=== PATIENT | male | born 1995 | race Caucasian/White ===

== ENCOUNTER → 2021-08-30 09:55 | Outpatient (BNVA) | payer OTHER, MEDICAID, SELFPAY | PROVIDERS: PCP Family Medicine; Referring Provider Family Medicine; Visit Provider Orthopaedic Surgery | DX: M25.311 Other instability, right shoulder (principal); M25.312 Other instability, left shoulder | CPT/HCPCS: 73030 ==

== ENCOUNTER → 2021-10-10 16:08 | Outpatient (BNVA) | payer MEDICAID, SELFPAY | PROVIDERS: PCP Family Medicine; Visit Provider Family Medicine | DX: G44.001 Cluster headache syndrome, unspecified, intractable (principal); R10.32 Left lower quadrant pain | CPT/HCPCS: 81000; 87086 ==

== ENCOUNTER 2021-10-13 09:43 | Outpatient (CLI) | payer MEDICAID, SELFPAY ==
--- NOTE | 2021-10-13 10:04 | XRR_ITS ---
PROCEDURE INFORMATION: Exam: XR Abdomen Exam date and time: 10/13/2021 10:10 AM Age: 25 years old Clinical indication: Abdominal pain; Localized; Left lower quadrant (llq); Patient HX: --llq abdomen pain for 5 days; Additional info: Llq pain TECHNIQUE: Imaging protocol: XR of the abdomen. Views: Frontal supine view of the abdomen. 1 View. COMPARISON: No relevant prior studies available. FINDINGS: Gastrointestinal tract: Nonobstructive bowel gas pattern. There is a moderate amount of stool throughout the colon and rectum, suggestive of constipation. Bones/joints: Unremarkable. XR/XR KUB [id number] IMPRESSION: 1. Nonobstructive bowel gas pattern. 2. Imaging findings suggestive of constipation.
== END 2021-10-13 09:44 | disposition home or self-care (01) ==
LOC: RAD 09:47
PROVIDERS: PCP Family Medicine; Visit Provider Family Medicine
DX: R10.32 Left lower quadrant pain (principal)
CPT/HCPCS: 74018

== ENCOUNTER 2021-10-14 22:17 | Inpatient (IN) | payer MEDICAID, SELFPAY ==
[2021-10-14 22:24] VITALS: BP 166/104; PULSE 124; RESP 20; TEMP 36.7; O2SAT 97; BMI 34.4
--- NOTE | 2021-10-14 22:25 | ED.C_ITS ---
HPI - Psych General: Chief Complaint: Psychiatric Symptoms Stated Complaint: HI Time Seen by Provider: 10/14/21 22:20 Source: patient Mode of arrival: ambulatory Limitations: no limitations History of Present Illness: 25-year-old male who states that he has been getting extremely angry and agitated with his family members. He states that he has been having thoughts of homicide along with depression and thoughts of hurting himself. Patient here is very tearful and is concerned that he is going to hurt himself or others and wants to get help. He has no specific plan. He denies any worsening improving factors he is not on any meds currently. Associated symptoms: Reports depression and homicidal ideation Review of Systems Const: Denies: fever(s), chills, body aches or change in appetite Eyes: Denies: blurry vision or eye discomfort ENMT: Denies: throat pain or dental pain Card: Denies: chest pain Resp: Denies: dyspnea GI: Denies: abdominal pain, nausea, vomiting or diarrhea : Denies: dysuria Musc: Denies: neck pain or back pain Skin/Breast: Denies: rash Neuro: Denies: headache(s) Psych: Reports: depression and homicidal ideation Juan Jose/Lymph: Denies: easy bruising All/Imm: Denies: urticaria PFSH ED PFSH: Medical History Cluster headaches Recurrent dislocation of shoulder region Bilateral Family History Father Cancer Hyperlipidemia Hypertension Grandmother Diabetes Denies family history of CAD (coronary artery disease) Clotting disorder Dementia Psychiatric illness Chronic kidney disease (CKD) Suicide Anesthesia complication Bleeding disorder Family history of premature coronary artery disease Lung disease Stroke Social History Smoking and tobacco status: current every day smoker e-cigarettes E-Cigarette Details: vaporizer device E-cig/vape details: 1 pod per 2 days Quit status (tobacco): not considering quitting Alcohol intake: former Adopted: No Caregiver/support person: Yes Lives independently: Yes Household members: spouse and children Marital status: Number of children: 3 service: Yes Current gender identity: Male Physical Exam Const: COMMON NORMALS: no acute distress, patient oriented x3 and healthy appearing HENMT: COMMON NORMALS: normocephalic and atraumatic HEAD & SCALP: normocep halic and atraumatic Eye: COMMON NORMALS: Equal, round and reactive pupils present and EOMs intact bilaterally PUPIL: Yes Equal, round and reactive pupils present Neck/C-Spine: COMMON NORMALS: full ROM and supple Chest: COMMONS NORMALS: normal inspection of the chest and normal palpation of entire chest wall Resp: COMMON NORMALS: normal respiratory effort, No retractions, No use of accessory muscles and clear to auscultation bilaterally AUSCULTATION: clear to auscultation bilaterally Cardio: COMMON NORMALS: regular rate, regular rhythm and No murmurs present (Cardio) RATE: regular rate RHYTHM: regular rhythm GI: COMMON NORMALS: Normal to inspection, nondistended, normoactive bowel sounds present, Soft to palpation, non-tender and no masses PALPATION: Yes Soft to palpation Extremity: COMMON NORMALS: normal to inspection and full ROM Neuro: COMMON NORMALS: patient oriented x3, moves all extremities and no focal motor deficits Psych: COMMON NORMALS: mental status grossly normal, Normal thought process present and cooperative MOOD & AFFECT: Yes depressed mood and Yes tearful THOUGHT PROCESS: Normal thought process present THOUGHT CONTENT: Yes Homicidality present Skin: COMMON NORMALS: no rashes or lesions noted and no wounds GENERAL SKIN EXAM: no rashes or lesions noted Course Vital Signs: Vital signs: Vital Signs Temperature 98.1 F 10/14/21 22:24 Pulse Rate 124 H 10/14/21 22:24 Respiratory Rate 20 H 10/14/21 22:24 Blood Pressure 166/104 10/14/21 22:24 Pulse Oximetry 97 10/14/21 22:24 [facility] - Psych Medical Decision Making Patient presents here with homicidal ideation along with suicidal ideations he is medically cleared placed in a 6-hour hold I spoke to psychiatrist and will admit to the psychiatric paredes. Lab Data : 10/14/21 22:38 10/14/21 22:38 Laboratory Results WBC 6.6 10^3/uL (4.0-10.0) 10/14/21 22:38 RBC 5.56 10^6/uL (4.1-5.3) H 10/14/21 22:38 Hgb 16.0 g/dL (11.7-16.6) 10/14/21: Hct 44.9 % (42.0-52.0) 10/14/21: MCV 80.8 fl (80-94) 10/14/21: MCH 28.8 pg (28.0-34.0) 10/14/21: MCHC 35.6 g/dL (30.0-36.0) 10/14/21: RDW 12.3 % (12.1-15.1) 10/14/21: Plt Count 314 10^3/cmm (130-400) 10/14/21: MPV 10.1 fL (7.4-10.4) 10/14/21: Neut % (Auto) 62.5 % 10/14/21: Lymph % (Auto) 30.2 % 10/14/21: [place] % (Auto) 5.7 % 10/14/21: Eos % (Auto) 0.6 % 10/14/21: Baso % (Auto) 0.5 % 10/14/21: Neut # (Auto) 4.14 10^3/uL (1.8-7.7) 10/14/21: Lymph # (Auto) 2.0 10^3/uL (0.8-4.8) 10/14/21: [place] # (Auto) 0.4 10^3/uL (0.2-0.9) 10/14/21: Eos # (Auto) 0.0 10^3/uL (0.0-0.8) 10/14/21: Baso # (Auto) 0.0 10^3/uL (0.0-0.1) 10/14/21: Nucleated RBC % (auto) 0 % 10/14/21 Nucleated RBCs # 0.0 /100WBC 10/14/21: Sodium 139 mmol/L (136-145) 10/14/21: Potassium 3.9 mmol/L (3.5-5.1) 10/14/21: Chloride 103 mmol/L (98-107) 06/10/22 22:38 Carbon Dioxide 21 mmol/L (22-29) L 10/14/21 22:38 Anion Gap 18.9 (5-19) 10/14/21 22:38 BUN 12 mg/dL (6-20) 10/14/21 22:38 Creatinine 0.8 mg/dL (0.7-1.2) 10/14/21 22:38 GFR Calculation 119.8 mL/min (90-130) 10/14/21 22:38 Glucose 92 mg/dL (65-115) 10/14/21 22:38 Calculated Osmolality 287 mOsm/kg (285-295) 10/14/21 22:38 Calcium 9.4 mg/dL (8.5-10.5) 10/14/21 22:38 Total Bilirubin 0.4 mg/dL (0.15-1.2) 10/14/21 22:38 AST 27 U/L (0-40) 10/14/21 22:38 ALT 61 U/L (0-41) H 10/14/21 22:38 Alkaline Phosphatase 66 IU/L (40-130) 10/14/21 22:38 Total Protein 7.9 g/dL (6.6-8.7) 10/14/21 22:38 Albumin 4.9 g/dL (3.5-5.2) 10/14/21 22:38 Globulin 3.0 g/dL (1.3-4.6) 10/14/21 22:38 Salicylates < 0.3 mg/dL (3-10) L 10/14/21 22:38 Acetaminophen < 5.0 ug/mL (10-30) L 10/14/21 22:38 Ethyl Alcohol < 10 mg/dL (0-10) 10/14/21 22:38 Discharge Plan Discharge Patient Disposition: Admitted As Inpatient Clinical Impression: Suicidal ideation, Homicidal ideations Condition: Stable Coding Level of 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
[2021-10-14] MEDS: LORazepam 2 mg Tablet PO (22:34)
[2021-10-14 22:48] LABS: Basophils % 0.5 %; Eosinophils % 0.6 %; Hematocrit 44.9 % (42.0-52.0); Lymphocytes % 30.2 %; Mean Corpuscular HGB Conc 35.6 g/dL (30.0-36.0); Mean Corpuscular Hemoglobin 28.8 pg (28.0-34.0); Mean Corpuscular Volume 80.8 fl (80-94); Mean Platelet Volume 10.1 fL (7.4-10.4); Monocytes # 0.4 10^3/uL (0.2-0.9); Monocytes % 5.7 %; Neutrophils # 4.14 10^3/uL (1.8-7.7); Neutrophils % 62.5 %; Nucleated Red Blood Cells % 0 %; Platelet Count 314 10^3/cmm (130-400); Red Blood Count 5.56 10^6/uL (4.1-5.3); Red Cell Distribution Width 12.3 % (12.1-15.1); White Blood Count 6.6 10^3/uL (4.0-10.0)
[2021-10-14 23:06] LABS: Alanine Aminotransferase 61 U/L (0-41); Albumin Level 4.9 g/dL (3.5-5.2); Alkaline Phosphatase 66 IU/L (40-130); Anion Gap 18.9 (5-19); Aspartate Amino Transferase 27 U/L (0-40); Blood Urea Nitrogen 12 mg/dL (6-20); Calcium 9.4 mg/dL (8.5-10.5); Carbon Dioxide 21 mmol/L (22-29); Chloride 103 mmol/L (98-107); Glomerular Filtration Rate 119.8 mL/min (90-130); Glucose 92 mg/dL (65-115); Osmolality Calculated 287 mOsm/kg (285-295); Potassium 3.9 mmol/L (3.5-5.1); Sodium 139 mmol/L (136-145); Total Bilirubin 0.4 mg/dL (0.15-1.2); Total Protein 7.9 g/dL (6.6-8.7)
[2021-10-14 23:14] LABS: Acetaminophen < 5.0 ug/mL (10-30); Alcohol Level < 10 mg/dL (0-10); Salicylate < 0.3 mg/dL (3-10)
[2021-10-14 23:54] LABS: Amphetamines Screen Urine Negative (Negative); Barbiturates Screen Urine Negative (Negative); Benzodiazepines Screen Urine Negative (Negative); Cocaine Screen Urine Negative (Negative); Opiate Screen Urine Negative (Negative); PCP Screen Urine Negative (Negative); THC Screen Urine Negative (Negative)
[2021-10-15 00:35] VITALS: BP 131/89; PULSE 83; RESP 16; O2SAT 94
[2021-10-15 00:50] VITALS: BP 138/87; PULSE 78; RESP 16; TEMP 36.9; O2SAT 96
[2021-10-15 06:00] VITALS: BP 116/79; PULSE 81; RESP 16; O2SAT 95
--- NOTE | 2021-10-15 09:10 | PC.NURSE ---
DENIES SI/HI AND AVH AT THIS TIME. PT STATES HE ALWAYS HAS PAIN DUE TO BEING IN THE [place] AND HURTING HIS BODY EVERYWHERE. [id number] PAIN 3/10 DECLINES PHARMACEUTICAL INTERVENTION AT THIS TIME. STATES HE HAD A MENTAL BREAK YESTERDAY BUT IT FINE TODAY AND I WANT TO LEAVE AND GO HOME. I'M FINE. PT VERY UPSET DUE TO 96 HOUR HOLD, PT STATES, NO ONE WENT OVER THAT FORM OR EVEN TOLD ME I WAS ON A HOLD WITH THE COURTS. THIS RN WENT OVER THE PAPER WORK WITH PT CHANELLE TO MAKE SURE HE UNDERSTOOD. PT STATES HE DOES UNDERSTAND, WHAT HE DOES NOT GET IS HE IS HERE VOLUNTARILY AND THEN WAS PLACED ON A HOLD. THIS RN INFORMED PT HE CAN SPEAK TO DR. WOODS THIS AM AND DISCUSS IT THEN. NUMBER TO [employer] LOCATION MANAGER ON 96 HOUR HOLD SHOWED TO PT THAT HE COULD CALL AND SPEAK TO SOMEONE. PT VOICES UNDERSTANDING.
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
[2021-10-15] MEDS: escitalopram 10 mg Tablet PO (10:48)
[2021-10-15] MEDS: OLANZapine 5 mg ODT PO (10:48)
[2021-10-15] MEDS: haloperidol 5 mg Tablet PO (11:34)
[2021-10-15] MEDS: haloperidol inj 5 mg/mL INJ 1 mL IM (11:53)
[2021-10-15] MEDS: LORazepam 2 mg/mL INJ 1 mL IM (11:53)
[2021-10-15] MEDS: diphenhydrAMINE 50 mg/mL SDV 1mL IM (11:54)
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
--- NOTE | 2021-10-15 12:25 | PC.NURSE ---
Patient Note After receiving PRN medications, this instructor product inspection stayed to talk with patient. Patient tearful and states he is mad and frustrated. States that he came here for help and just needs to know if he can control his anger. He states his brother currently living with him, his , his 3 kids and their mom. States the brother is unstable and the rest of the family looks to him (Marvin) to keep the brother in line. States at home he (patient) feels angry all the time, so instead of showing anger - he shows no emotion. States he knows he shouldn't feel this way and doesn't want to feel this way anymore. Will continue to monitor.
[2021-10-15 14:00] VITALS: BP 134/82; PULSE 94; RESP 18; TEMP 36.4; O2SAT 98
[2021-10-15 19:53] VITALS: RESP 16
[2021-10-16 06:00] VITALS: BP 149/89; PULSE 91; RESP 19; TEMP 36.9; O2SAT 95
[2021-10-16] MEDS: escitalopram 10 mg Tablet PO (08:11)
--- NOTE | 2021-10-16 08:11 | PC.NURSE ---
refused scheduled verapamil
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
[2021-10-16 14:00] VITALS: BP 130/68; PULSE 92; RESP 20; TEMP 37; O2SAT 99
--- NOTE | 2021-10-16 14:28 | PC.NURSE ---
refused scheduled Verapamil
[2021-10-16 20:11] VITALS: BP 121/70; PULSE 69; RESP 16; TEMP 36.8; O2SAT 95
[2021-10-17 06:00] VITALS: BP 143/90; PULSE 92; RESP 17; TEMP 37; O2SAT 96
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
[2021-10-17] MEDS: escitalopram 10 mg Tablet PO (08:01)
[2021-10-17 08:54] VITALS: BP 143/90; PULSE 92; RESP 17; TEMP 37; O2SAT 96
--- NOTE | 2021-10-17 10:20 | PC.OT ---
OT EVALUATION ORDERS RECEIVED. PATIENT SCHEDULED FOR D/C; NURSING REQUEST TO HOLD AT THIS TIME.
== END 2021-10-17 10:41 | disposition home or self-care (01) | DRG 880 ==
LOC: ER 23:37 → NP 23:46
PROVIDERS: Admitting Provider Psychiatry & Neurology Psychiatry; Emergency Provider Emergency Medicine; PCP Family Medicine; Visit Provider Psychiatry & Neurology Psychiatry
DX: F41.9 Anxiety disorder, unspecified (principal); R45.851 Suicidal ideations; F32.9 Major depressive disorder, single episode, unspecified; R45.850 Homicidal ideations; G47.00 Insomnia, unspecified; F43.10 Post-traumatic stress disorder, unspecified; F17.290 Nicotine dependence, other tobacco product, uncomplicated
CPT/HCPCS: 80053; 80306; 80307; 85025; 96372; 99285; J1200; J1630; J2060